=== PATIENT | male | born 1950 | race Caucasian/White ===

== ENCOUNTER 2024-12-27 17:20 | Emergency (ER) | payer MEDICARE, OTHER, SELFPAY ==
[2024-12-27 17:30] VITALS: BP 148/80; PULSE 94; RESP 18; TEMP 37.7; O2SAT 95; BMI 31.3
--- NOTE | 2024-12-27 17:36 | XR_ITS ---
Examination: Testicular sonography complete Technique: Grayscale sonographic images testes, assessment arterial inflow venous outflow Doppler spectral analysis carful analysis Exam date and time: December 28, 2024 at 1854 hrs. Indications: Bilateral testicular swelling and pain beginning one month ago. Findings: Right testis 4.9 cm epididymis 15 mm 4 mm right epididymal cysts Appendix testis 5 mm Mild varicocele Arterial flow testicle. Testicular mass Left testis 4.0 cm epididymis 2.1 cm Appendix testis 8 mm Arterial flow testicle. No testicular mass Moderate varicocele Mild hydrocele Impression: No testicular torsion or testicular mass Left epididymitis Moderate left varicocele
--- NOTE | 2024-12-27 17:40 | EDRME_ITS ---
Rapid Medical Screening Exam [facility] Arrival date/time: 12/27/24 17:20 74-year-old male with no known medical history presents to the emergency room with a chief complaint of left testicular swelling and pain who x 3 days. Patient states he is taking antibiotics for a urinary infection. Patient denies any dysuria or hematuria I have greeted and performed a focused initial assessment of this patient. A comprehensive ED assessment and evaluation of the patient, analysis of all test results, and completion of the medical decision making process will be conducted by additional ED providers. Chief Complaint: Urogenital-Male Time Seen by Provider: 12/27/24 17:28 Vital signs: Vital Signs Temperature 99.8 F 12/27/24 17:30 Pulse Rate 94 12/27/24 17:30 Respiratory Rate 18 12/27/24 17:30 Blood Pressure 148/80 H 12/27/24 17:30 Pulse Oximetry (%) 95 12/27/24 17:30 Oxygen Delivery Method Room Air 12/27/24 17:30 Vital signs reviewed by provider: Yes
[2024-12-27 18:53] LABS: Basophils # (Auto) 0.1 Thou/mm3 (0.0-0.2); Basophils % (Auto) 0 % (0-2.5); Eosinophils # (Auto) 0.2 Thou/mm3 (0.0-0.5); Eosinophils % (Auto) 0 % (0-10); Hemoglobin 10.2 g/dL (13.5-16.0); Immature Granulocytes % (Auto) 2 % (0-0); Immature Granulocytes Auto 1.92 Thou/mm3 (0.00-0.00); Lymphocytes # (Auto) 75.1 Thou/mm3 (1.0-4.8); Lymphocytes % (Auto) 75 % (10-50); Mean Corpuscular Hemoglobin 26.9 pg (25.0-35.0); Mean Corpuscular Volume 90 fL (80-100); Monocytes # (Auto) 6.1 Thou/mm3 (0.0-0.8); Monocytes % (Auto) 6 % (0-12); Neutrophils % (Auto) 17 % (37-80); Nucleated Red Blood Cell # 0.02 Thou/mm3 (0.00-0.00); Nucleated Red Blood Cell % 0 /100 WBC (0); Platelet Count 144 Thou/mm3 (140-440); RDW Standard Deviation 55.3 fL (35.1-43.9); Red Blood Count 3.79 Miln/mm3 (4.50-5.90)
[2024-12-27 18:56] LABS: White Blood Count 100.4 Thou/mm3 (3.8-10.6)
[2024-12-27 19:10] LABS: Path Review Blood Smear Sent to Pathologist
[2024-12-27 19:15] LABS: Alanine Aminotransferase 33 U/L (10-49); Albumin, Serum 3.9 gm/dL (3.4-4.8); Albumin/Globulin Ratio 1.3 (1.2-2.2); Alkaline Phosphatase 198 U/L (46-116); Anion Gap 9 (7-16); Aspartate Amino Transferase 65 U/L (0-34); BUN/Creatinine Ratio 12 Ratio (12-20); Bilirubin,Total 0.4 mg/dL (0.3-1.2); Blood Urea Nitrogen 15 mg/dL (9-23); Calcium 9.6 mg/dL (8.3-10.6); Calcium (Corrected) 9.7 mg/dL (8.5-10.1); Chloride 105 mMol/L (98-107); Creatinine (Component) 1.3 mg/dL (0.6-1.3); Glucose 142 mg/dL (74-106); Osmolality,Calculated 282 (275-295); Potassium 3.7 mMol/L (3.4-5.1); Sodium 140 mMol/L (136-145); Total Protein 6.9 gm/dL (5.7-8.2); eGFR 58 See Note
[2024-12-27 19:37] LABS: Collection Type, Urine Clean Catch
--- NOTE | 2024-12-27 19:47 | PD.EDMALE ---
ED Male Genitalurinary RME/HPI General Chief complaint: Urogenital-Male Stated complaint: TESTCLE PAIN Time Seen by Provider: 12/27/24 17:28 Arrival date/time: 12/27/24 17:20 RME / HPI RME / HPI Narrative: 12/27/24 17:20 74-year-old male with no known medical history presents to the emergency room with a chief complaint of left testicular swelling and pain who x 3 days. Patient states he is taking antibiotics for a urinary infection. Patient denies any dysuria or hematuria I have greeted and performed a focused initial assessment of this patient. A comprehensive ED assessment and evaluation of the patient, analysis of all test results, and completion of the medical decision making process will be conducted by additional ED providers. ------ This section includes all my notes and documentations, including HPI, PE, and ED course. Akash Srivastava MD HPI: 74yo male with a history of DM, HTN, BPH, and Lymphoma accompanied by his son presents to the ED for a chief complaint of bilateral testicle pain and swelling x 1.5 months. Patient states he is currently on Levofloxacion, reporting he has been taking it for the last 7 days with some improvement of symptoms. He reports associated night sweats, mild weight loss, decreased appetite, and has been more fatigued. He states he has trouble sitting down due to the pain. He denies any dysuria, frequency, hematuria, fever, chills, back pain or any other associated symptoms. No other complaints reported. ROS: All negative except as documented in HPI. Physical Exam: General: Alert and oriented. No acute distress when remaining still. Eyes: Conjunctivae and lids clear. ENT: No nasal congestion. Neck: Supple. Heart: RRR. Lungs: No respiratory distress. Abdomen: Soft and nontender. Normal bowel sounds. No distension. No rebound or guarding. Gu: Enlarged testicles, L>R, with redness and pain on palpation. Skin: Warm and dry. Neuro: Alert and oriented X 3. I reviewed all diagnostic test results. My interpretation of the testicular US is left epididymitis. My review of the abdominal CT report is NAD. Blood tests and urine tests remarkable for WBC 100.4. At this point, diagnoses include Epididymitis and Lymphoma. Treatment here included Rocephin and Tylenol with Codeine. He felt better. Recommended outpatient treatment. Based on my best medical judgment, made decision no further evaluation or treatment indicated at this time. Patient understands and agrees to the discharge instructions customized and printed, see below. Discharge Instructions from Dr. Srivastava: --After evaluation, you have epididymitis. This is inflammation/infection of a coiled tube called the epididymis that is located behind your testicle, inside the scrotum. The epididymis collects and stores sperm made by the testicles. --Epididymitis is often caused by bacteria. --Finish your current 10-day course of Levaquin and and finish 10-day course of Levaquin I prescribed today. So for a total of 20 days. --Apply ice or heat if helpful. --Wear athletic supporter as needed. -- Ibuprofen 400 mg every 6-8 hours today and tomorrow to decrease inflammation then as needed. --Tylenol with codeine for more help with your pain. --See a private doctor on for recheck and further care. Ask to help until you are completely better. Ask for help with referral to see Urologist. And for your lymphoma treatment. --Seek immediate medical care with worsening pain, fever > 100.4, or with any concerns. Akash Srivastava MD Related Data Previous Rx's ?Medication ?Instructions ?Recorded acetaminophen 300 mg-codeine 30 mg 2 tab PO Q8H PRN pain #20 tabs 12/27/24 tablet levofloxacin 500 mg tablet 500 mg PO QDAY 10 days #10 tabs 12/27/24 Allergies Allergy/AdvReac Type Severity Reaction Status Date / Time No Known Allergies Allergy Verified 12/27/24 17:22 Review of Systems Review of Systems Systems Reviewed: All systems reviewed, normal except as documented Past Medical History Social History SMOKING STATUS: Never smoker ED Exam Narrative Physical exam: As noted in HPI. Course Quality Measures none Orders Category Date Time Status CT abdomen pelvis wo con Stat Exams 12/27/24 19:50 Completed US testicular Stat Exams 12/27/24 17:36 Completed Blood Culture (Lab) Stat Lab 12/27/24 21:07 Received CBC Stat Lab 12/27/24 18:14 Completed CMP [Comprehensive Metabolic Panel] Stat Lab 12/27/24 18:14 Completed CRP [C-Reactive Protein] Stat Lab 12/27/24 21:02 Completed ESR [Sed Rate (ESR)] Stat Lab 12/27/24 21:02 Completed Lactate (Lactic Acid) Stat Lab 12/27/24 21:02 Completed Path Review Blood Smear Stat Lab 12/27/24 18:14 Completed Procalcitonin Stat Lab 12/27/24 21:02 Completed UA, C/S IF [Urinalysis, C/S if Indicated] Stat Lab 12/27/24 18:57 Completed ACETAMINOPHEN w/COD 300-30 [Tylenol w/Cod #3] Med 12/27/24 21:12 Discontinued 2 tab PO X1 ONE cefTRIAXone [Rocephin] 1,000 mg Med 12/27/24 17:39 Discontinued Lidocaine 1% 20 ml [Xylocaine 1% 20 ML] 2.1 ml IM X1 Vital Signs Vital signs: Vital Signs Temperature 99.8 F 12/27/24 17:30 Pulse Rate 94 12/27/24 17:30 Respiratory Rate 18 12/27/24 17:30 Blood Pressure 148/80 H 12/27/24 17:30 Pulse Oximetry (%) 95 12/27/24 17:30 Oxygen Delivery Method Room Air 12/27/24 17:30 Urogenital - Male MDM Narrative MDM Narrative:: Scribe Attestation: 12/27/24 - Teresa Hou am scribing for and in the presence of Dr. Srivastava. Patient data External records reviewed:: [facility] previous records (Per chart review, patient has no previous ED visits or admissions to this facility.) Clinical information provided by:: patient Social determinants that could affect healthcare access:: none Patient has the following chronic illnesses:: DM, HTN, BPH How is presenting disease/condition affected by chronic disease/condition?: exacerbated by Evaluation data The following diagnostics were reviewed and interpreted by me:: lab results and radiology exam(s) Lab and/or radiology exams considered but not ordered:: none Interpretation Summary: Epididymitis, Lymphoma Medications / Prescriptions Medications or Prescriptions considered but not ordered:: none Medication administrations:: Medication Administration History Discontinued Medications Acetaminophen/Codeine Phosphate (Acetaminophen W/Cod 300-30 Tablet) 2 tab PO X1 ONE Stop: 12/27/24 21:13 Last Admin: 12/27/24 21:31 Dose: 2 tab Documented By: DAJUAN Ceftriaxone Sodium 1,000 mg/ (Lidocaine HCl 2.1 ml) 0 mg IM X1 ONE Stop: 04/16/25 17:40 Rocephin, Tylenol with Codeine Consultations Consultation(s) initiated? (list below): No Diagnosis Urogenital Male Differential Diagnosis: urinary tract infection, urethritis, epididymitis, prostatitis, acute retention of urine and inguinal hernia Most likely diagnosis given after review of the tests above:: Epididymitis, Lymphoma Admission Indicated Admission indicated?: not indicated Explain why admission is indicated or not indicated:: No criteria for admission. Admission Request Was there a request for admission?: No Disposition Plan Disposition Plan: Discharge Discharge Attestation Discharge Attestation: The patient and all family members were given an opportunity to ask questions and understood the discharge instructions. Discharge instructions specifically effects, indications for sooner follow up or return to the emergency department, and the expected course of current diagnosis. Patient condition: Stable Discharge Plan Plan Patient Disposition: HOME (Self Care) Prescriptions/Referrals Prescriptions/Med Rec: New acetaminophen-codeine 300-30 mg tablet 2 tab PO Q8H MDD 6 PRN (Reason: pain) Qty: 20 0RF levofloxacin 500 mg tablet 500 mg PO QDAY 10 Days Qty: 10 0RF Referrals: No Primary/Family,Physician [Primary Care Provider] - In 1 week Problem List Clinical Impression: Epididymitis, Lymphoma Patient/Caregiver Discharge Instructions Discharge Activity: activity as tolerated Education Materials: What Is Non-Hodgkin Lymphoma, ED Epididymitis Additional Instructions: Discharge Instructions from Dr. Srivastava: --After evaluation, you have epididymitis. This is inflammation/infection of a coiled tube called the epididymis that is located behind your testicle, inside the scrotum. The epididymis collects and stores sperm made by the testicles. --Epididymitis is often caused by bacteria. --Finish your current 10-day course of Levaquin and and finish 10-day course of Levaquin I prescribed today. So for a total of 20 days. --Apply ice or heat if helpful. --Wear athletic supporter as needed. -- Ibuprofen 400 mg every 6-8 hours today and tomorrow to decrease inflammation then as needed. --Tylenol with codeine for more help with your pain. --See a private doctor on for recheck and further care. Ask to help until you are completely better.? Ask for help with referral to see Urologist.?? And for your lymphoma treatment. --Seek immediate medical care with worsening pain, fever > 100.4, or with any concerns. Print Language: Citizen Of [place] Stand Alone Forms: Work/School Release
--- NOTE | 2024-12-27 19:50 | XR_ITS ---
Examination: CT abdomen and pelvis without contrast. Coronal 3-D reconstructions. Sagittal 2-D reconstructions. Date and time of exam:December 27, 20242022 hrs. Indications: Testicular pain and edema, cyanosis 7 days CTDI: vol (mGy): 9.22 DLP: (mGycm): 582 Technique: Axial images of the abdomen have been obtained, 3 mm slice thickness Intravenous contrast material has not been administered. Low dose protocols were performed. One or more of the following dose reduction techniques were used; automated exposure control, adjustment of the mA and/or KV according to patient size, use of iterative reconstruction technique. Findings: Diffuse fatty infiltration throughout the liver, liver is irregular in contour Splenomegaly 16 cm Gallstones Gallbladder wall appears thickened 4 mm left renal calculus with prominent perinephric stranding Mild perinephric stranding Small bilateral renal cysts including small proteinaceous cyst lateral margin right kidney Multiple pericaval periaortic nodes Abdominal aortic calcification transverse dimension 34 mm Appendix is partially visualized and does not appear enlarged No bowel obstruction Edema in the pelvis adjacent to the common iliac arteries clinical correlation advised Urinary bladder wall shows thickening with marked cystitis pattern Transverse prostate dimension 4.9 cm Fat-containing inguinal hernias Left hydrocele Impression: Fatty liver, primary hepatocellular disease versus cirrhosis Significant splenomegaly Cholelithiasis, recommend testicular sonography follow-up to exclude cholecystitis Bilateral pyelonephritis pattern 4 mm left renal calculus with perinephric stranding Abdominal aortic aneurysm 34 mm Edema in the pelvis adjacent to the common iliac arteries, unclear etiology, clinical correlation advised Severe cystitis pattern
[2024-12-27 19:51] LABS: Bilirubin,Urine Negative (Negative); Blood,Urine Negative (Negative); Clarity,Urine Clear (Clear/Hazy); Color,Urine Yellow (Lt Yel-Yel); Culture Indicated,Urine Not Indicated; Glucose, Urine Negative (Negative); Ketones,Urine Negative (Negative); Leukocyte Esterase,Urine Negative (Negative); Nitrite,Urine Negative (Negative); Protein,Urine Trace (Neg - Trace); RBC,Urine 1 /hpf (0-3); Specific Gravity,Urine 1.019 (1.001-1.035); Squamous Epithelial Cell,Urine < 1 /hpf (0-5); Urobilinogen,Urine Negative mg/dL (0.0-1.0); WBC,Urine 5 /hpf (0-5)
[2024-12-27 21:26] LABS: Lactate (Lactic Acid) 2.8 mMol/L (0.4-2.0)
[2024-12-27] MEDS: ACETAMINOPHEN w/COD 300-30 TABLET 2 TAB PO (21:31)
[2024-12-27 22:02] LABS: Sed Rate (ESR) 96 mm/hr (0-20)
[2024-12-27 23:41] LABS: Procalcitonin 0.21 ng/ml (0.0-0.49)
[2024-12-28 00:02] LABS: C-Reactive Protein 9.7 mg/dL (0.0-0.9)
[2024-12-28 00:19] LABS: Reflex Lactate? Y
== END 2024-12-27 21:40 | disposition home or self-care (01) ==
PROVIDERS: Nurse Practitioner Family; Emergency Provider Emergency Medicine
DX: N45.1 Epididymitis (principal); N40.0 Benign prostatic hyperplasia without lower urinary tract symptoms; E11.9 Type 2 diabetes mellitus without complications; I10 Essential (primary) hypertension; C85.90 Non-Hodgkin lymphoma, unspecified, unspecified site
CPT/HCPCS: 36415; 74176; 76870; 80053; 81001; 83605; 84145; 85025; 85652; 86140; 87040; 99284; A9270